=== PATIENT | male | born 1990 | race Caucasian/White ===

== ENCOUNTER 2018-11-30 16:46 | Emergency (ER) | payer BC ==
[~2018-11-30] VITALS: Ht 177.8 cm; Wt 93.0 kg
[2018-11-30] MEDS ORDERED: ATEN25TA PO (17:05)
[2018-11-30] MEDS ORDERED: METF-440 PO (17:05)
[2018-11-30] MEDS ORDERED: VALS160T2 PO (17:05)
--- NOTE | 2018-11-30 17:31 | NUR ---
Patient discharged to home in stable conditon. Written and verbal after care instructions given. Patient verbalizes understanding of instructions.
== END 2018-11-30 17:32 | disposition home or self-care (01) ==
LOC: ER 16:46
DX: K60.2 Anal fissure, unspecified (principal); E11.9 Type 2 diabetes mellitus without complications; Z79.899 Other long term (current) drug therapy
CPT/HCPCS: A4663